=== PATIENT | male | born 1995 | race Caucasian/White ===

== ENCOUNTER → 2021-12-15 | Outpatient (CLI) | payer BC ==
[~2021-12-15] MED LIST: Mobic15 MG PO; Norco 5-325 Ta1 EACH PO; Zofran Odt4 MG SL; Zofran8 MG PO
[2021-12-17 01:11] LABS: CHLAMYDIA TRACHOMATIS, NAA Negative (Negative)
== END | disposition home or self-care (01) ==
LOC: LAB SHORT 10:55 → LAB 10:55
PROVIDERS: Family Medicine
DX: R30.9 Painful micturition, unspecified (principal)
CPT/HCPCS: 87491; 87591

== ENCOUNTER 2025-06-02 22:14 | Emergency (ER) | payer OTHER ==
[~2025-06-02] VITALS: Ht 182.9 cm; Wt 83.9 kg
[2025-06-03 00:20] LABS: BASOPHILS ABSOLUTE AUTO 0.04 K/mm3 (0.00-0.23); BASOPHILS PERCENT AUTO 1 % (0-2); EOSINOPHILS ABSOLUTE AUTO 0.26 K/mm3 (0.00-0.68); EOSINOPHILS PERCENT AUTO 4 % (0-6); Hematocrit 45.6 % (37.0-53.0); Hemoglobin 16.1 g/dL (13.5-17.5); IMMATURE GRAN ABSOLUTE AUTO 0.01 K/mm3 (0.00-0.10); IMMATURE GRAN PERCENT AUTO 0 % (0-1); LYMPHOCYTES ABSOLUTE AUTO 1.79 K/mm3 (0.84-5.20); LYMPHOCYTES PERCENT AUTO 26 % (21-46); MONOCYTES ABSOLUTE AUTO 1.13 K/mm3 (0.16-1.47); MONOCYTES PERCENT AUTO 16 % (4-13); Mean Corpuscular HGB Conc 35.3 g/dL (31.5-36.5); Mean Corpuscular Volume 82 fL (80-100); NEUTROPHILS ABSOLUTE AUTO 3.79 K/mm3 (1.96-9.15); NEUTROPHILS PERCENT AUTO 54 % (41-73); NRBC ABSOLUTE 0.00 K/mm3 (0.00-0.02); NRBC Auto 0.0 /100 WBC (0.0-0.2); Platelet Count 222 K/mm3 (150-400); RDW Coefficient Variation 12.2 % (11.7-14.2); RDW Standard Deviation 36.8 fL (35.1-46.3)
[2025-06-03 00:37] LABS: Alanine Aminotransfer (ALT/SGP 38.0 U/L (12-78); Albumin, Blood 4.4 g/dL (3.4-5.0); Albumin/Globulin Ratio 1.5 (0.8-1.8); Anion Gap 6.0 mmol/L (3-11); Aspartate Aminotrans (AST/SGOT 29.0 U/L (12-37); Bilirubin, Total 0.6 mg/dL (0.1-1.0); Blood Urea Nitrogen 17.0 mg/dL (8-24); CO2, Blood 29.0 mmol/L (21-32); Calcium, Blood 9.5 mg/dL (8.5-10.1); Chloride, Blood 105.0 mmol/L (98-108); Creatinine, Blood 0.93 mg/dL (0.60-1.20); Globulin, Blood 2.9 g/dL (2.2-4.0); Glucose, Blood 97.0 mg/dL (70-99); Potassium, Blood 3.4 mmol/L (3.5-5.5); Sodium, Blood 137.0 mmol/L (136-145); Total Protein, Blood 7.3 g/dL (6.4-8.2)
[2025-06-03 01:15] VITALS: BP 133/79
[2025-06-03] MEDS ORDERED: Ketorolac Tromethamine 15mg Vial IV ONE (01:20)
== END 2025-06-03 01:27 | disposition home or self-care (01) ==
LOC: ER 22:14
PROVIDERS: Student in an Organized Health Care Education/Training Program
DX: S43.91XA Sprain of unspecified parts of right shoulder girdle, initial encounter (principal); S43.92XA Sprain of unspecified parts of left shoulder girdle, initial encounter; S46.812A Strain of other muscles, fascia and tendons at shoulder and upper arm level, left arm, initial encounter; S46.811A Strain of other muscles, fascia and tendons at shoulder and upper arm level, right arm, initial encounter; Z79.1 Long term (current) use of non-steroidal anti-inflammatories (NSAID); Z87.891 Personal history of nicotine dependence; Z59.89 Other problems related to housing and economic circumstances; X50.0XXA Overexertion from strenuous movement or load, initial encounter
CPT/HCPCS: 71046; 80053; 84484; 85025; 93005; 93010; 96374; 99284-25; J1885